=== PATIENT | female | born 1970 | race Caucasian/White ===

== ENCOUNTER → 2017-02-21 14:03 | Outpatient (CLI) | payer BC ==
[2015-10-23 06:12] VITALS: BMI 21.8
[~2017-02-21 14:03] MED LIST: JOLIVETTE0.35 MG PO
== END | disposition home or self-care (01) ==
LOC: D.CT 14:03
DX: N83.201 Unspecified ovarian cyst, right side (principal); R79.89 Other specified abnormal findings of blood chemistry

== ENCOUNTER → 2017-12-07 07:45 | Outpatient (CLI) | payer BC ==
[2015-10-23 06:12] VITALS: BMI 21.8
== END | disposition home or self-care (01) ==
LOC: D.MRI 07:45
DX: R97.1 Elevated cancer antigen 125 [CA 125] (principal)